=== PATIENT | female | born 1955 | race Hispanic/Latino ===

== ENCOUNTER 2022-03-11 21:25 | Emergency (ER) | payer SELFPAY ==
[2022-03-11 22:01] VITALS: BP 153/90
[2022-03-12] MEDS ORDERED: LIDOCAINE VISCOUS 2% 15 ML ORAL LIQD MM NR (01:00)
--- NOTE | 2022-03-12 03:44 | Emergency Department Report ---
ED General Adult HPI - General Chief complaint: Rectal Pain Stated complaint: RECTAL PROLAPSE Time Seen by Provider: 03/12/22 00:26 Source: EMS Mode of arrival: Stretcher Limitations: No Limitations - History of Present Illness Initial comments: RECTAL PROLASPSE, HAS HX WAS ADVISED TO GET SURGERY HAS NOT AT THIS TIME, PT DID STATE SHE HAS PUT SUGAR ON PROLAPSE WITH NO RELIEF. -: Gradual, month(s) Location: pelvis Severity scale (0 -10): 8 Associated Symptoms: denies: denies other symptoms, confusion, chest pain, cough, diaphoresis, fever/chills Treatments Prior to Arrival: none - Related Data Allergies Allergy/AdvReac Type Severity Reaction Status Date / Time No Known Allergies Allergy Verified 03/12/22 01:03 ED Review of Systems ROS: Stated complaint: RECTAL PROLAPSE Other details as noted in HPI Constitutional: denies: chills, fever Eyes: denies: eye pain, eye discharge, vision change ENT: denies: ear pain, throat pain Respiratory: denies: cough, shortness of breath, wheezing Cardiovascular: denies: chest pain, palpitations Endocrine: no symptoms reported Gastrointestinal: denies: abdominal pain, nausea, diarrhea Genitourinary: denies: urgency, dysuria, discharge Musculoskeletal: denies: back pain, joint swelling, arthralgia Skin: denies: rash, lesions Neurological: denies: headache, weakness, paresthesias Psychiatric: denies: anxiety, depression Hematological/Lymphatic: denies: easy bleeding, easy bruising ED Past Medical Hx - Past Medical History Previous Medical History?: Yes Hx Hypertension: No Hx CVA: No Additional medical history: RECTAL PROLAPSE - Social History Smoking Status: Never Smoker Substance Use Type: None ED Physical Exam - General Limitations: No Limitations General appearance: alert, in no apparent distress - Head Head exam: Present: atraumatic, normocephalic - Eye Eye exam: Present: normal appearance - ENT ENT exam: Present: mucous membranes moist - Neck Neck exam: Present: normal inspection - Respiratory Respiratory exam: Present: normal lung sounds bilaterally. Absent: respiratory distress - Cardiovascular Cardiovascular Exam: Present: regular rate, normal rhythm. Absent: systolic murmur, diastolic murmur, rubs, gallop - GI/Abdominal GI/Abdominal exam: Present: soft, normal bowel sounds - Rectal Rectal exam: Present: mass, other (full thickness rectal prolapse) - Extremities Exam Extremities exam: Present: normal inspection - Back Exam Back exam: Present: normal inspection - Neurological Exam Neurological exam: Present: alert, oriented X3 - Psychiatric Psychiatric exam: Present: normal affect, normal mood - Skin Skin exam: Present: warm, dry, intact, normal color. Absent: rash ED Course Vital Signs 03/11/22 03/11/22 21:28 22:00 Temperature 97.9 F 97.8 F Pulse Rate 82 77 Respiratory 18 18 Rate Blood Pressure 166/78 Blood Pressure 153/90 [Right] O2 Sat by Pulse 97 98 Oximetry ED Medical Decision Making - Medical Decision Making reduction using vicous lidocaine and manural reduction Critical care attestation.: If time is entered above; I have spent that time in minutes in the direct care of this critically ill patient, excluding procedure time. ED Disposition Clinical Impression: Rectal prolapse Disposition: 01 HOME / SELF CARE / HOMELESS Is pt being admited?: No Does the pt Need Aspirin: No Condition: Stable Instructions: Rectal Prolapse, Adult Referrals: ANA CASTILLO MD [Staff Physician] - 3-5 Days
== END 2022-03-12 04:12 | disposition home or self-care (01) ==
LOC: ED 21:25
DX: K62.3 Rectal prolapse (principal)
CPT/HCPCS: 99283

== ENCOUNTER 2022-04-13 12:07 | Inpatient (IN) | payer SELFPAY ==
[2022-04-14] MEDS ORDERED: cefTRIAXone/NS 2 GM/100 ML 2 GM/100 ML BAG IV STA (02:03)
[2022-04-14] MEDS ORDERED: VANCOMYCIN/NS 1 GM/250 ML 1 GM/250 ML BAG IV STA (02:03)
[2022-04-14 02:23] LABS: Hematocrit 32.6 % (30.3-42.9); Hemoglobin 10.2 gm/dl (10.1-14.3); Mean Corpuscular HGB Conc 31 % (30-34); Mean Corpuscular Volume 81 fl (79-97); Platelet Count 480 K/mm3 (140-440); Red Blood Count 4.02 M/mm3 (3.65-5.03); Red Cell Distribution Width 19.1 % (13.2-15.2)
[2022-04-14 02:38] LABS: Alanine Aminotransferase 13 units/L (7-56); BUN/Creatinine Ratio 18; Blood Urea Nitrogen 11 mg/dL (7-17); Hemolysis Index 14
[2022-04-14] MEDS ORDERED: MORPHINE 4 MG/1 ML INJ IV STA (05:12)
--- NOTE | 2022-04-14 05:12 | Cat Scan Report ---
CT CHEST WITH CONTRAST INDICATION / CLINICAL INFORMATION: large wound to mid left back. TECHNIQUE: Axial CT images were obtained through the chest after 100 cc Omnipaque [address] l [address] scans at this location are performed using CT dose reduction for ALARA by means of automated exp osure control. COMPARISON: None available. FINDINGS: CHEST LOWER NECK: Soft tissues and musculature of the lower neck demonstrate no significant abnormality. Th e thyroid demonstrates no significant abnormality. THORACIC AORTA: Mild atherosclerotic calcification without acute abnormality. PULMONARY ARTERY:No significant abnormality. HEART: No significant abnormality. CORONARY ARTERY CALCIFICATION: Present -- Severe. MEDIASTINUM / SHANNON: No significant abnormality. ESOPHAGUS: No significant abnormality. LYMPH NODES: Enlarged left axillary lymph nodes are present. Borderline to minimally enlarged right a xillary lymph nodes are present. Partially calcified subcarinal left hilar lymph nodes are demonstrat ed. LUNGS: Calcified granuloma left lower lobe. Lungs otherwise clear. PLEURA: No pleural effusion. No pneumothorax. THORACIC SOFT TISSUES: A focal region of soft tissue thickening overlies the lower left back with mod erate stranding and dermal thickening. The appearance suggests inflammatory or infectious process. No drainable fluid collections are demonstrated. OSSEOUS STRUCTURES: No significant abnormality of included osseous structures. UPPER ABDOMEN: No significant abnormality. ADDITIONAL CHEST FINDINGS: None. IMPRESSION: 1. Focal region of suggested cellulitis left lower back. No drainable fluid collections. 2. Bilateral axillary adenopathy possibly reactive. Signer Name: Eliazar Saleh II, MD Signed: 04/14/2022 5:07 AM Workstation Name: [id number]
[2022-04-14] MEDS ORDERED: MORPHINE 2 MG/1 ML INJ IV ONE (06:00)
--- NOTE | 2022-04-14 06:08 | Emergency Department Report ---
- General Chief complaint: Skin Rash Stated complaint: SPIDER BITE Time Seen by Provider: 04/14/22 01:53 Source: EMS Mode of arrival: Ambulatory Limitations: No Limitations - History of Present Illness MD complaint: abscess/boil, discoloration -: Gradual, days(s) (3) Quality: aching, dull Consistency: constant Improves with: none Worsens with: none Context: none Associated symptoms: denies other symptoms Treatments Prior to Arrival: none - Related Data Allergies Allergy/AdvReac Type Severity Reaction Status Date / Time No Known Allergies Allergy Verified 03/12/22 01:03 Abscess Boil HPI - HPI Chief Complaint: Skin Rash Stated Complaint: SPIDER BITE Time Seen by Provider: 04/14/22 01:53 Allergies/Adverse Reactions: Allergies Allergy/AdvReac Type Severity Reaction Status Date / Time No Known Allergies Allergy Verified 03/12/22 01:03 ED Review of Systems ROS: Stated complaint: SPIDER BITE Other details as noted in HPI Comment: All other systems reviewed and negative ED Past Medical Hx - Past Medical History Previous Medical History?: Yes Hx Hypertension: Yes Hx CVA: No Additional medical history: RECTAL PROLAPSE - Surgical History Past Surgical History?: No - Social History Smoking Status: Current Every Day Smoker ED Physical Exam - General Limitations: No Limitations General appearance: alert, in no apparent distress - Head Head exam: Present: atraumatic, normocephalic - Eye Eye exam: Present: normal appearance, PERRL, EOMI Pupils: Present: normal accommodation - ENT ENT exam: Present: mucous membranes moist - Neck Neck exam: Present: normal inspection - Respiratory Respiratory exam: Present: normal lung sounds bilaterally. Absent: respiratory distress - Cardiovascular Cardiovascular Exam: Present: regular rate, normal rhythm. Absent: systolic murmur, diastolic murmur, rubs, gallop - GI/Abdominal GI/Abdominal exam: Present: soft, normal bowel sounds - Extremities Exam Extremities exam: Present: normal inspection - Back Exam Back exam: Present: normal inspection, tenderness - Expanded Back Exam Expanded 1 - Significant cellulitis some weeping and some ducted tissue centralization. Cellulitis is a 20 cm - Neurological Exam Neurological exam: Present: alert, oriented X3, CN II-XII intact - Psychiatric Psychiatric exam: Present: normal affect, normal mood - Skin Skin exam: Present: warm, dry, intact, normal color. Absent: rash ED Course Vital Signs 04/13/22 04/14/22 04/14/22 12:15 05:07 05:10 Temperature 98.6 F 98.9 F Pulse Rate 102 H 96 H Respiratory 18 18 Rate Blood Pressure 170/84 Blood Pressure 145/80 [Left] O2 Sat by Pulse 100 100 98 Oximetry - Consultations Consultation #1: 04/14/22 06:18 Case discussed with hospitalist Dr. Jhaveri who is aware of the findings CT scan abdomen the lab findings chief complaint is for admission ED Medical Decision Making - Lab Data Result diagrams: 04/14/22 02:13 04/14/22 02:13 Lab Results 04/14/22 04/14/22 04/14/22 Range/Units 02:13 02:13 02:13 WBC 16.0 H (4.5-11.0) K/mm3 RBC 4.02 (3.65-5.03) M/mm3 Hgb 10.2 (10.1-14.3) gm/dl Hct 32.6 (30.3-42.9) % MCV 81 (79-97) fl MCH 25 L (28-32) pg MCHC 31 (30-34) % RDW 19.1 H (13.2-15.2) % Plt Count 480 H (140-440) K/mm3 Sodium 135 L (137-145) mmol/L Potassium 3.2 L (3.6-5.0) mmol/L Chloride 97.0 L (98-107) mmol/L Carbon Dioxide 25 (22-30) mmol/L Anion Gap 16 mmol/L BUN 11 (7-17) mg/dL Creatinine 0.6 (0.6-1.2) mg/dL Estimated GFR > 60 ml/min BUN/Creatinine Ratio 18 % Glucose 128 H (65-100) mg/dL Lactic Acid 1.00 (0.7-2.0) mmol/L Calcium 9.0 (8.4-10.2) mg/dL Total Bilirubin 0.20 (0.1-1.2) mg/dL AST 17 (5-40) units/L ALT 13 (7-56) units/L Alkaline Phosphatase 93 (35-129) units/L Total Protein 6.6 (6.3-8.2) g/dL Albumin 3.0 L (3.9-5) g/dL Albumin/Globulin Ratio 0.8 % - Radiology Data Radiology results: report reviewed [facility] [address] [id number] Cat Scan Report Signed Patient: DAIANA ANN MR#: [id number] : 1955 Acct:[id number] Age/Sex: 66 / F ADM Date: 04/13/22 Loc: ED Attending Dr: Ordering Physician: CARLYLE MC Date of Service: 04/14/22 Procedure(s): CT chest w con Accession Number(s): [id number] cc: CARLYLE MC CT CHEST WITH CONTRAST INDICATION / CLINICAL INFORMATION: large wound to mid left back. TECHNIQUE: Axial CT images were obtained through the chest after 100 cc Omnipaque [address] scans at this location are performed using CT dose reduction for ALARA by means of automated exposure control. COMPARISON: None available. FINDINGS: CHEST LOWER NECK: Soft tissues and musculature of the lower neck demonstrate no significant abnormality. The thyroid demonstrates no significant abnormality. THORACIC AORTA: Mild atherosclerotic calcification without acute abnormality. PULMONARY ARTERY:No significant abnormality. HEART: No significant abnormality. CORONARY ARTERY CALCIFICATION: Present -- Severe. MEDIASTINUM / SHANNON: No significant abnormality. ESOPHAGUS: No significant abnormality. LYMPH NODES: Enlarged left axillary lymph nodes are present. Borderline to minimally enlarged right axillary lymph nodes are present. Partially calcified subcarinal left hilar lymph nodes are demonstrated. LUNGS: Calcified granuloma left lower lobe. Lungs otherwise clear. PLEURA: No pleural effusion. No pneumothorax. THORACIC SOFT TISSUES: A focal region of soft tissue thickening overlies the lower left back with moderate stranding and dermal thickening. The appearance suggests inflammatory or infectious process. No drainable fluid collections are demonstrated. OSSEOUS STRUCTURES: No significant abnormality of included osseous structures. UPPER ABDOMEN: No significant abnormality. ADDITIONAL CHEST FINDINGS: None. IMPRESSION: 1. Focal region of suggested cellulitis left lower back. No drainable fluid collections. 2. Bilateral axillary adenopathy possibly reactive. Signer Name: Stacy Alexander II, MD Signed: 04/14/2022 5:07 AM Workstation Name: [id number] Transcribed By: IKE Dictated By: STACY ALEXANDER II, MD Electronically Authenticated By: STACY ALEXANDER II, MD Signed Date/Time: 04/14/22 0507 DD/ 0456 TD/TT: Critical care attestation.: If time is entered above; I have spent that time in minutes in the direct care of this critically ill patient, excluding procedure time. ED Disposition Clinical Impression: Cellulitis of back, Wound infection Disposition: 09 ADMITTED INPATIENT Is pt being admited?: Yes Does the pt Need Aspirin: No Condition: Stable Instructions: Cellulitis, Adult Referrals: PRIMARY CARE, [Primary Care Provider] - 3-5 Days
[2022-04-14] MEDS ORDERED: ONDANSETRON 4 MG/2 ML INJ IV PRN (07:28)
[2022-04-14] MEDS ORDERED: ACETAMINOPHEN 325 MG TAB PO PRN (08:00)
[2022-04-14] MEDS ORDERED: cephALEXin 500 MG CAP PO SCH (10:00)
[2022-04-14] MEDS ORDERED: SULFAMETHOXAZOLE/TRIMETHOPRIM 800/160MG DS TAB PO SCH (10:00)
[2022-04-14] MEDS ORDERED: POTASSIUM CHLORIDE ER 20 MEQ TAB PO SCH (10:00)
[2022-04-14] MEDS ORDERED: VANCOMYCIN/NS 1 GM/250 ML 1 GM/250 ML BAG IV SCH (14:00)
[2022-04-14] MEDS ORDERED: VANCOMYCIN PHARMACY TO DOSE IV SCH (14:00)
[2022-04-14] MEDS: cefTRIAXone/NS 1 GM/50 ML 1 GM/50 ML BAG IV SCH (14:41)
[2022-04-14] MEDS ORDERED: VANCOMYCIN/NS 1 GM/250 ML 1 GM/250 ML BAG IV ONE (15:00)
--- NOTE | 2022-04-14 16:21 | Consultation ---
History of Present Illness Consult date: 04/14/22 Reason for consult: wound care Chief complaint: back wound - History of present illness History of present illness: 66 yo F with who presents to ER with c/o 3 days or worsening back pain secondary to a wound. Patient states she was working in her garden and felt like she was bit by something. This started off as a small bite and got much larger/swollen over the course of 3 days. She tried warm compresses but this did not help. Eventually the area drained dark colored pus and closed back up. She presented to the ER for further evaluation and treatment. She denies f/c, cp, sob, n/v, c/d. She had a bite to her finger several years ago which resulted in something similar. She states it was drained at [place] and she was in the hospital for a few days for wound care/abx. Past History Past Medical History: No medical history Past Surgical History: Other (tubal ligation, incision and drainage of left finger abscess) Social history: smoking (marijuana ), alcohol abuse (social). denies: prescription drug abuse Family history: no significant family history Medications and Allergies Allergies Allergy/AdvReac Type Severity Reaction Status Date / Time No Known Allergies Allergy Verified 03/12/22 01:03 Active Meds: Active Medications Acetaminophen (Acetaminophen 325 Mg Tab) 650 mg PO Q4H PRN PRN Reason: Pain MILD(1-3)/Fever >100.5/ESPOSITO Last Admin: 04/14/22 08:55 Dose: 650 mg Ceftriaxone Sodium (Rocephin/Ns 1 Gm/50 Ml) 1 gm in 50 mls @ 100 mls/hr IV Q24H KARY; Protocol Last Admin: 04/14/22 14:41 Dose: 100 mls/hr Vancomycin HCl (Vancomycin/Ns 1 Gm/250 Ml) 1 gm in 250 mls @ 167.007 mls/hr IV ONCE ONE Stop: 04/14/22 16:29 Vancomycin HCl 750 mg/ Sodium (Chloride) 265 mls @ 166.667 mls/hr IV Q12H KARY Morphine Sulfate (Morphine 4 Mg/1 Ml Inj) 2 mg IV Q4H PRN PRN Reason: Pain , Severe (7-10) Ondansetron HCl (Ondansetron 4 Mg/2 Ml Inj) 4 mg IV Q8H PRN PRN Reason: Nausea And Vomiting Last Admin: 04/14/22 08:56 Dose: 4 mg Oxycodone/Acetaminophen (Oxycodone /Acetaminophen 5-325mg Tab) 1 tab PO Q6H PRN PRN Reason: Pain, Moderate (4-6) Sodium Chloride (Sodium Chloride 0.9% 10 Ml Flush Syringe) 10 ml IV BID KARY Sodium Chloride (Sodium Chloride 0.9% 10 Ml Flush Syringe) 10 ml IV PRN PRN PRN Reason: LINE FLUSH Review of Systems All systems: negative (10 point review of systems performed and negative except for that listed in HPI) Exam Vital Signs Temp Pulse Resp BP Pulse Ox 98.6 F 102 H 18 170/84 100 04/13/22 12:15 04/13/22 12:15 04/13/22 12:15 04/13/22 12:15 04/13/22 12:15 Narrative exam: Gen.: Awake, alert, oriented x3. No apparent distress ENT: Trachea midline. No lymphadenopathy. No scleral icterus or conjunctival pallor CV: S1, S2 present Respiratory: No audible wheezes Extremities: No clubbing, cyanosis, edema Back: Large 10 cm area of cellulitis, severe induration of left mid back with central area of necrotic skin measuring 3cm. No drainage. There are multiple superficial tiny pustules. Moderate TTP in area of cellulitis. Minimal sensation over area of necrosis. No active drainage Results - Labs 04/14/22 02:13 04/14/22 02:13 Abnormal lab results 04/14/22 04/14/22 Range/Units 02:13 02:13 WBC 16.0 H (4.5-11.0) K/mm3 MCH 25 L (28-32) pg RDW 19.1 H (13.2-15.2) % Plt Count 480 H (140-440) K/mm3 Sodium 135 L (137-145) mmol/L Potassium 3.2 L (3.6-5.0) mmol/L Chloride 97.0 L (98-107) mmol/L Glucose 128 H (65-100) mg/dL Albumin 3.0 L (3.9-5) g/dL Diabetes panel 04/14/22 Range/Units 02:13 Sodium 135 L (137-145) mmol/L Potassium 3.2 L (3.6-5.0) mmol/L Chloride 97.0 L (98-107) mmol/L Carbon Dioxide 25 (22-30) mmol/L BUN 11 (7-17) mg/dL Creatinine 0.6 (0.6-1.2) mg/dL Glucose 128 H (65-100) mg/dL Calcium 9.0 (8.4-10.2) mg/dL AST 17 (5-40) units/L ALT 13 (7-56) units/L Alkaline Phosphatase 93 (35-129) units/L Total Protein 6.6 (6.3-8.2) g/dL Albumin 3.0 L (3.9-5) g/dL Calcium panel 04/14/22 Range/Units 02:13 Calcium 9.0 (8.4-10.2) mg/dL Albumin 3.0 L (3.9-5) g/dL Pituitary panel 04/14/22 Range/Units 02:13 Sodium 135 L (137-145) mmol/L Potassium 3.2 L (3.6-5.0) mmol/L Chloride 97.0 L (98-107) mmol/L Carbon Dioxide 25 (22-30) mmol/L BUN 11 (7-17) mg/dL Creatinine 0.6 (0.6-1.2) mg/dL Glucose 128 H (65-100) mg/dL Calcium 9.0 (8.4-10.2) mg/dL Adrenal panel 04/14/22 Range/Units 02:13 Sodium 135 L (137-145) mmol/L Potassium 3.2 L (3.6-5.0) mmol/L Chloride 97.0 L (98-107) mmol/L Carbon Dioxide 25 (22-30) mmol/L BUN 11 (7-17) mg/dL Creatinine 0.6 (0.6-1.2) mg/dL Glucose 128 H (65-100) mg/dL Calcium 9.0 (8.4-10.2) mg/dL Total Bilirubin 0.20 (0.1-1.2) mg/dL AST 17 (5-40) units/L ALT 13 (7-56) units/L Alkaline Phosphatase 93 (35-129) units/L Total Protein 6.6 (6.3-8.2) g/dL Albumin 3.0 L (3.9-5) g/dL - Imaging CT scan - chest: report reviewed, image reviewed Assessment and Plan 66 yo F with 1. Necrotic back wound with severe cellulitis likely secondary to insect bite Plan: 1. IV abx 2. prn pain control 3. warm compresses to area 4. recommend debridement. Will check OR schedule for tomorrow. 5. NPO p MN karely Discussed with Dr. Jenkins Plan discussed with patient and questions answered. Thank you for this consultation. Please call with any questions or concerns. Evaluation and treatment of this patient was during the time of the national and state emergency arising from COVID19 coronavirus pandemic. Treatment and procedures performed meet the current and available best practice and guidelines for patient during the COVID pandemic.
--- NOTE | 2022-04-14 18:52 | History and Physical Report ---
History of Present Illness Date of examination: 04/14/22 Date of admission: 04/14/22 07:29 Chief complaint: Back wound History of present illness: 66 yo F with who presents to ER with c/o 3 days or worsening back pain secondary to a wound. Patient states she was working in her garden and felt like she was bit by something. This started off as a small bite and got much larger/swollen over the course of 3 days. She tried warm compresses but this did not help. Even tually the area drained dark colored pus and closed back up. She presented to the ER for further evaluation and treatment. She denies f/c, cp, sob, n/v, c/d. She had a bite to her finger several years ago which resulted in something similar. She states it was drained at [place] and she was in the hospital for a few days for wound care/abx. Past History Past Medical History: No medical history Past Surgical History: Other (tubal ligation, incision and drainage of left finger abscess) Social history: , Lives alone, smoking (marijuana ), full code. denies: prescription drug abuse Family history: no significant family history Medications and Allergies Allergies Allergy/AdvReac Type Severity Reaction Status Date / Time No Known Allergies Allergy Verified 03/12/22 01:03 Active Meds: Active Medications Acetaminophen (Acetaminophen 325 Mg Tab) 650 mg PO Q4H PRN PRN Reason: Pain MILD(1-3)/Fever >100.5/ESPOSITO Last Admin: 04/14/22 08:55 Dose: 650 mg Ceftriaxone Sodium (Rocephin/Ns 1 Gm/50 Ml) 1 gm in 50 mls @ 100 mls/hr IV Q24H KARY; Protocol Last Admin: 04/14/22 14:41 Dose: 100 mls/hr Vancomycin HCl 750 mg/ Sodium (Chloride) 265 mls @ 166.667 mls/hr IV Q12H KARY Sodium Chloride (Nacl 0.45% 1000 Ml) 1,000 mls @ 75 mls/hr IV DIRECT KARY Morphine Sulfate (Morphine 4 Mg/1 Ml Inj) 2 mg IV Q4H PRN PRN Reason: Pain , Severe (7-10) Ondansetron HCl (Ondansetron 4 Mg/2 Ml Inj) 4 mg IV Q8H PRN PRN Reason: Nausea And Vomiting Last Admin: 04/14/22 08:56 Dose: 4 mg Oxycodone/Acetaminophen (Oxycodone /Acetaminophen 5-325mg Tab) 1 tab PO Q6H PRN PRN Reason: Pain, Moderate (4-6) Sodium Chloride (Sodium Chloride 0.9% 10 Ml Flush Syringe) 10 ml IV BID KARY Sodium Chloride (Sodium Chloride 0.9% 10 Ml Flush Syringe) 10 ml IV PRN PRN PRN Reason: LINE FLUSH Review of Systems All systems: negative Integumentary: wounds Exam - Constitutional Vitals: Temp Pulse Resp BP Pulse Ox 98.3 F 79 18 114/60 100 04/14/22 14:30 04/14/22 14:30 04/14/22 14:30 04/14/22 14:30 04/14/22 14:30 General appearance: Present: no acute distress, well-nourished - EENT Eyes: Present: PERRL, EOM intact ENT: hearing intact, clear oral mucosa, poor dentition, edentulous - Neck Neck: Present: supple, normal ROM - Respiratory Respiratory effort: normal Respiratory: bilateral: CTA - Extremities Extremities: no ischemia, pulses intact, pulses symmetrical, No edema, normal temperature, normal color Peripheral Pulses: within normal limits - Abdominal General gastrointestinal: Present: soft, non-tender, non-distended, normal bowel sounds Female genitourinary: Present: deferred - Rectal Rectal Exam: deferred - Integumentary Integumentary: Present: warm, dry, erythema (Erythematous, severe cellulitis of the upper left back with visible necrosis) - Musculoskeletal Musculoskeletal: strength equal bilaterally - Psychiatric Psychiatric: appropriate mood/affect, intact judgment & insight, memory intact, cooperative - Neurologic Neurologic: CNII-XII intact, moves all extremities - Allied Health Allied health notes reviewed: nursing Results - Labs CBC & Chem 7: 04/14/22 02:13 04/14/22 02:13 Labs: Laboratory Last Values WBC 16.0 K/mm3 (4.5-11.0) H 04/14/22 02:13 RBC 4.02 M/mm3 (3.65-5.03) 04/14/22 02:13 Hgb 10.2 gm/dl (10.1-14.3) 04/14/22 02:13 Hct 32.6 % (30.3-42.9) 04/14/22 02:13 MCV 81 fl (79-97) 04/14/22 02:13 MCH 25 pg (28-32) L 04/14/22 02:13 MCHC 31 % (30-34) 04/14/22 02:13 RDW 19.1 % (13.2-15.2) H 04/14/22 02:13 Plt Count 480 K/mm3 (140-440) H 04/14/22 02:13 Sodium 135 mmol/L (137-145) L 04/14/22 02:13 Potassium 3.2 mmol/L (3.6-5.0) L 04/14/22 02:13 Chloride 97.0 mmol/L (98-107) L 04/14/22 02:13 Carbon Dioxide 25 mmol/L (22-30) 04/14/22 02:13 Anion Gap 16 mmol/L 04/14/22 02:13 BUN 11 mg/dL (7-17) 04/14/22 02:13 Creatinine 0.6 mg/dL (0.6-1.2) 04/14/22 02:13 Estimated GFR > 60 ml/min 04/14/22 02:13 BUN/Creatinine Ratio 18 % 04/14/22 02:13 Glucose 128 mg/dL (65-100) H 04/14/22 02:13 Lactic Acid 1.00 mmol/L (0.7-2.0) 04/14/22 02:13 Calcium 9.0 mg/dL (8.4-10.2) 04/14/22 02:13 Total Bilirubin 0.20 mg/dL (0.1-1.2) 04/14/22 02:13 AST 17 units/L (5-40) 04/14/22 02:13 ALT 13 units/L (7-56) 04/14/22 02:13 Alkaline Phosphatase 93 units/L (35-129) 04/14/22 02:13 Total Protein 6.6 g/dL (6.3-8.2) 04/14/22 02:13 Albumin 3.0 g/dL (3.9-5) L 04/14/22 02:13 Albumin/Globulin Ratio 0.8 % 04/14/22 02:13 Assessment and Plan Assessment and plan: #Severe cellulitis of the left upper back WBC 10.2, unremarkable lactic acid CT chest revealing large cellulitis without drainable pockets Continue vancomycin and Rocephin for antibiotic management. Continue as needed analgesics. General surgery consulted; appreciate recs Planning for possible debridement in OR tomorrow (if schedule allows). N.p.o. at midnight. Continue to monitor. #Hypokalemia Potassium 3.2 Repleted. Continue to monitor. #Mild protein caloric malnutrition Albumin 3.0 Continue dietary supplementation. #Advanced care planning -Disease education conducted, care plan discussed, diagnoses discussed, prognosis discussed, and patient acknowledges understanding with care plan -Time: +30 min Advance Directives: No VTE prophylaxis?: Chemical Plan of care discussed with patient/family: Yes
[2022-04-14] MEDS: HEPARIN 5,000 UNIT/1 ML VIAL SUB-Q SCH (22:00)
[2022-04-15] MEDS: VANCOMYCIN 750 MG in SODIUM CHLORIDE 0.9% 250ML 250 ML IV SCH ×3 (03:45→17:35)
[2022-04-15] MEDS: SODIUM CHLORIDE 0.45% 1000 ML 1,000 ML IV SCH ×2 (04:31→16:40)
[2022-04-15] MEDS: HEPARIN 5,000 UNIT/1 ML VIAL SUB-Q SCH ×3 (06:35→21:29)
[2022-04-15 09:56] LABS: Blood Urea Nitrogen 7 mg/dL (7-17); Calcium 8.5 mg/dL (8.4-10.2); Hemolysis Index 0
[2022-04-15 09:58] LABS: BUN/Creatinine Ratio 12
[2022-04-15 09:59] LABS: Basophils # (Auto) 0.1 K/mm3 (0.0-0.1); Basophils % (Auto) 0.8 % (0.0-1.8); Eosinophils # (Auto) 0.5 K/mm3 (0.0-0.4); Eosinophils % (Auto) 3.4 % (0.0-4.3); Hemoglobin 10.1 gm/dl (10.1-14.3); Lymphocytes # (Auto) 1.1 K/mm3 (1.2-5.4); Lymphocytes % (Auto) 8.4 % (13.4-35.0); Mean Corpuscular HGB Conc 32 % (30-34); Mean Corpuscular Volume 81 fl (79-97); Monocytes # (Auto) 0.9 K/mm3 (0.0-0.8); Monocytes % (Auto) 6.4 % (0.0-7.3); Platelet Count 541 K/mm3 (140-440); Red Blood Count 3.94 M/mm3 (3.65-5.03); Red Cell Distribution Width 19.5 % (13.2-15.2)
[2022-04-15 10:10] LABS: INR 0.94 (0.87-1.13)
[2022-04-15] MEDS ORDERED: KETAMINE/STERILE WATER 50 MG/ML SYRINGE ONE (13:44)
[2022-04-15] MEDS ORDERED: propofoL 200 MG/20 ML VIAL IV ONE ×4 (13:44)
[2022-04-15] MEDS ORDERED: LACTATED RINGERS 1,000 ML ONE (14:06)
--- NOTE | 2022-04-15 14:10 | Anesthesia Day of Surgery ---
Anesthesia Day of Surgery - Day of Surgery Patient Examined: Yes Patient H&P Reviewed: Yes Patient is NPO: Yes
--- NOTE | 2022-04-15 14:12 | Anesthesia Consultation ---
Anesthesia Consult and Med Hx Date of service: 04/15/22 - Airway Anesthetic Teeth Evaluation: Poor, Chipped, Partials Mental/Hyoid Distance: Adequate Mallampati Class: Class II Intubation Access Assessment: Good - Pre-Operative Health Status ASA Pre-Surgery Classification: ASA2 Proposed Anesthetic Plan: MAC - Pulmonary Hx Smoking: Yes Hx Sleep Apnea: No - Gastrointestinal Hx Gastroesophageal Reflux Disease: No - Other Systems Hx Substance Use: Yes (MJ) Hx Obesity: No
--- NOTE | 2022-04-15 14:40 | Procedure Note ---
Date of procedure: 04/15/22 Pre-op diagnosis: back abscess Post-op diagnosis: same Procedure: excisional debridement of back wound with drainage of abscess Findings: Findings: 4 cm area of necrotic skin and subcutaneous tissue with underlying abscess, multiple tracts to skin. Procedure: Time out performed. Patient in lateral decubitus position. Skin prepped and draped in sterile fashion. Anesthesia given. Local anesthetic infiltrated into skin. The central area of necrosis was excised using an 11 blade and forcep. The wound was probed with a gloved finger and all loculations broken up. The abscess cavity extended through subq tissue. Muscle visible. Additional necrotic subq tissue debrided using foreceps and blade. A copious amount of pus was evacuated and cultures obtained. The wound was irrigated and hemostasis achieved with pressure. The wound was packed with 2 pieces of saline moistened gauze. This was covered with dry gauze and foam dressing. Wound measured 4.5 x 4 x 1.5 cm. Patient tolerated the procedure well. All sharps were disposed of appropriately. Anesthesia: MAC, local Surgeon: OUMOU UMANZOR Estimated blood loss: minimal Pathology: list (wound cultures) Specimen disposition: to lab Condition: stable Disposition: PACU
--- NOTE | 2022-04-15 14:47 | Post Anesthesia Evaluation ---
- Post Anesthesia Evaluation Patient Participated: Yes Airway Patent: Yes Stable Respiratory Function: Yes Nausea/Vomiting: No Temp > 96.8F: Yes Pain Manageable: Yes Adequeate Hydration: Yes Anesthesia Complications: No Block Receding Appropriately: Not Applicable Patient on Ventilator: No
--- NOTE | 2022-04-15 14:51 | Progress Note ---
Assessment and Plan Assessment and plan: #Severe cellulitis of the left upper back WBC 10.2, unremarkable lactic acid CT chest revealing large cellulitis without drainable pockets Continue vancomycin and Rocephin for antibiotic management. Continue as needed analgesics. General surgery consulted; appreciate recs Status post debridement in OR today with general surgery. Wound cultures pending. Infectious disease consulted for antibiotic management; pending recs #Hypokalemiaresolved Potassium 3.2 Repleted. Continue to monitor. #Mild protein caloric malnutrition Albumin 3.0 Continue dietary supplementation. #Advanced care planning -Disease education conducted, care plan discussed, diagnoses discussed, prognosis discussed, and patient acknowledges understanding with care plan -Time: +30 min #Discharge planning - Patient is pending wound culture results and final antibiotic regimen. - Case management has been made aware. Disposition Plan: Continue medical management Total Time Spent with Patient (Minutes): 45 minutes History Interval history: No acute events overnight. Hospitalist Physical - Constitutional Vitals: Temp Pulse Resp BP Pulse Ox 98.3 F 79 18 114/60 100 04/14/22 14:30 04/14/22 14:30 04/14/22 14:30 04/14/22 14:30 04/14/22 14:30 General appearance: Present: no acute distress, well-nourished - EENT Eyes: Present: PERRL, EOM intact ENT: hearing intact, clear oral mucosa, poor dentition, edentulous - Neck Neck: Present: supple, normal ROM - Respiratory Respiratory effort: normal Respiratory: bilateral: CTA - Cardiovascular Rhythm: regular Heart Sounds: Present: S1 & S2 - Extremities Extremities: no ischemia, pulses intact, pulses symmetrical, No edema, normal temperature, normal color Peripheral Pulses: within normal limits - Abdominal General gastrointestinal: soft, non-tender, non-distended, normal bowel sounds - Integumentary Integumentary: Present: warm, dry, erythema (Erythema surrounding cellulitis of left upper back; approximately 6 cm in diameter with necrotic tissue.) - Psychiatric Psychiatric: appropriate mood/affect, intact judgment & insight, memory intact, cooperative - Neurologic Neurologic: CNII-XII intact - Allied Health Allied health notes reviewed: nursing Results - Labs CBC & Chem 7: 04/15/22 09:11 04/15/22 09:11 Labs: Laboratory Last Values WBC 13.6 K/mm3 (4.5-11.0) H 04/15/22 09:11 RBC 3.94 M/mm3 (3.65-5.03) 04/15/22 09:11 Hgb 10.1 gm/dl (10.1-14.3) 04/15/22 09:11 Hct 32.0 % (30.3-42.9) 04/15/22 09:11 MCV 81 fl (79-97) 04/15/22 09:11 MCH 26 pg (28-32) L 04/15/22 09:11 MCHC 32 % (30-34) 04/15/22 09:11 RDW 19.5 % (13.2-15.2) H 04/15/22 09:11 Plt Count 541 K/mm3 (140-440) H 04/15/22 09:11 Lymph % (Auto) 8.4 % (13.4-35.0) L 04/15/22 09:11 [place] % (Auto) 6.4 % (0.0-7.3) 04/15/22 09:11 Eos % (Auto) 3.4 % (0.0-4.3) 04/15/22 09:11 Baso % (Auto) 0.8 % (0.0-1.8) 04/15/22 09:11 Lymph # (Auto) 1.1 K/mm3 (1.2-5.4) L 04/15/22 09:11 [place] # (Auto) 0.9 K/mm3 (0.0-0.8) H 04/15/22 09:11 Eos # (Auto) 0.5 K/mm3 (0.0-0.4) H 04/15/22 09:11 Baso # (Auto) 0.1 K/mm3 (0.0-0.1) 04/15/22 09:11 Seg Neutrophils % 81.0 % (40.0-70.0) H 04/15/22 09:11 Seg Neutrophils # 11.0 K/mm3 (1.8-7.7) H 04/15/22 09:11 PT 13.6 Sec. (12.2-14.9) 04/15/22 09:11 INR 0.94 (0.87-1.13) 04/15/22 09:11 Sodium 137 mmol/L (137-145) 04/15/22 09:11 Potassium 4.0 mmol/L (3.6-5.0) D 04/15/22 09:11 Chloride 101.9 mmol/L (98-107) 04/15/22 09:11 Carbon Dioxide 26 mmol/L (22-30) 04/15/22 09:11 Anion Gap 13 mmol/L 04/15/22 09:11 BUN 7 mg/dL (7-17) 04/15/22 09:11 Creatinine 0.6 mg/dL (0.6-1.2) 04/15/22 09:11 Estimated GFR > 60 ml/min 04/15/22 09:11 BUN/Creatinine Ratio 12 % 04/15/22 09:11 Glucose 95 mg/dL (65-100) 04/15/22 09:11 Lactic Acid 1.00 mmol/L (0.7-2.0) 04/14/22 02:13 Calcium 8.5 mg/dL (8.4-10.2) 04/15/22 09:11 Total Bilirubin 0.20 mg/dL (0.1-1.2) 04/14/22 02:13 AST 17 units/L (5-40) 04/14/22 02:13 ALT 13 units/L (7-56) 04/14/22 02:13 Alkaline Phosphatase 93 units/L (35-129) 04/14/22 02:13 Total Protein 6.6 g/dL (6.3-8.2) 04/14/22 02:13 Albumin 3.0 g/dL (3.9-5) L 04/14/22 02:13 Albumin/Globulin Ratio 0.8 % 04/14/22 02:13 Active Medications - Current Medications Current Medications: Generic Name Dose Route Start Last Admin Trade Name Freq PRN Reason Stop Dose Admin Acetaminophen 650 mg 04/14/22 08:00 04/14/22 08:55 Acetaminophen 325 Mg Tab PO 650 mg Q4H PRN Administration Pain MILD(1-3)/Fever >100.5/ESPOSITO Heparin Sodium (Porcine) 5,000 unit 04/14/22 22:00 04/15/22 06:35 Heparin 5,000 Unit/1 Ml Vial SUB-Q 5,000 unit Q8HR KARY Administration Ceftriaxone Sodium 1 gm in 50 mls @ 100 mls/hr 04/14/22 14:00 04/14/22 14:41 Rocephin/Ns 1 Gm/50 Ml IV 100 mls/hr Q24H AKRY Administration Protocol Vancomycin HCl 750 mg/ Sodium 265 mls @ 166.667 mls/hr 04/15/22 03:00 04/15/22 03:45 Chloride IV 166.667 mls/hr Q12H KARY Administration Sodium Chloride 1,000 mls @ 75 mls/hr 04/14/22 17:00 04/15/22 04:31 Nacl 0.45% 1000 Ml IV 75 mls/hr DIRECT KARY Administration Morphine Sulfate 2 mg 04/14/22 08:00 Morphine 4 Mg/1 Ml Inj IV Q4H PRN Pain , Severe (7-10) Ondansetron HCl 4 mg 04/14/22 07:28 04/14/22 08:56 Ondansetron 4 Mg/2 Ml Inj IV 4 mg Q8H PRN Administration Nausea And Vomiting Oxycodone/Acetaminophen 1 tab 04/14/22 07:28 Oxycodone /Acetaminophen 5-325mg Tab PO Q6H PRN Pain, Moderate (4-6) Sodium Chloride 10 ml 04/14/22 10:00 04/14/22 22:00 Sodium Chloride 0.9% 10 Ml Flush Syringe IV 10 ml BID KARY Administration Sodium Chloride 10 ml 04/14/22 08:00 Sodium Chloride 0.9% 10 Ml Flush Syringe IV PRN PRN LINE FLUSH
[2022-04-15] MEDS: cefTRIAXone/NS 1 GM/50 ML 1 GM/50 ML BAG IV SCH ×2 (16:22→16:41)
--- NOTE | 2022-04-15 16:41 | Consultation ---
History of Present Illness - Reason for Consult Consult date: 04/15/22 - History of Present Illness 66-year-old female past medical history unknown presented to hospital complaining of worsening back pain in the setting of a wound. This began approximately 3 days prior to admission and was worsening since onset. She notes believing she was bitten by something while working in her garden. After few days she noted drainage of dark off. Surgery performed excisional debridement with drainage of abscess. She was noted to have 4 cm necrotic skin. Afebrile since admission with a white count of 16. Normal renal function. No current cultures. On ceftriaxone and vancomycin. Imaging personally reviewed: Chest ET: Cellulitis of the left lower back. Review of Systems: Bold if positive, otherwise negative General: fevers, chills, rigors HEENT: visual disturbance, diplopia, eye pain Respiratory: cough, sputum, hemoptysis, shortness of breath Cardiovascular: chest pain, syncope Gastrointestinal: nausea, vomiting, diarrhea, abdominal pain Genitourinary: dysuria, hematuria, flank pain Musculoskeletal: neck pain, back pain, joint pain, edema Neurologic: headaches, seizures Hematologic: easy bruising or bleeding Endocrine: night sweats, acute weight loss Skin: rash, jaundice, redness Psychiatric: suicidal, homicidal ideation Past History Past Medical History: No medical history Past Surgical History: Other (tubal ligation, incision and drainage of left finger abscess) Social history: , Lives alone, smoking (marijuana ), full code. denies: prescription drug abuse Family history: no significant family history Medications and Allergies Allergies Allergy/AdvReac Type Severity Reaction Status Date / Time No Known Allergies Allergy Verified 03/12/22 01:03 Active Meds: Active Medications Acetaminophen (Acetaminophen 325 Mg Tab) 650 mg PO Q4H PRN PRN Reason: Pain MILD(1-3)/Fever >100.5/ESPOSITO Last Admin: 04/14/22 08:55 Dose: 650 mg Heparin Sodium (Porcine) (Heparin 5,000 Unit/1 Ml Vial) 5,000 unit SUB-Q Q8HR KARY Last Admin: 04/15/22 16:22 Dose: Not Given Ceftriaxone Sodium (Rocephin/Ns 1 Gm/50 Ml) 1 gm in 50 mls @ 100 mls/hr IV Q24H KARY; Protocol Last Admin: 04/15/22 16:22 Dose: Not Given Vancomycin HCl 750 mg/ Sodium (Chloride) 265 mls @ 166.667 mls/hr IV Q12H [facility] Last Admin: 04/15/22 16:22 Dose: Not Given Sodium Chloride (Nacl 0.45% 1000 Ml) 1,000 mls @ 75 mls/hr IV DIRECT [facility] Last Admin: 04/15/22 04:31 Dose: 75 mls/hr Morphine Sulfate (Morphine 4 Mg/1 Ml Inj) 2 mg IV Q4H PRN PRN Reason: Pain , Severe (7-10) Ondansetron HCl (Ondansetron 4 Mg/2 Ml Inj) 4 mg IV Q8H PRN PRN Reason: Nausea And Vomiting Last Admin: 04/14/22 08:56 Dose: 4 mg Oxycodone/Acetaminophen (Oxycodone /Acetaminophen 5-325mg Tab) 1 tab PO Q6H PRN PRN Reason: Pain, Moderate (4-6) Sodium Chloride (Sodium Chloride 0.9% 10 Ml Flush Syringe) 10 ml IV BID [facility] Last Admin: 04/15/22 16:21 Dose: Not Given Sodium Chloride (Sodium Chloride 0.9% 10 Ml Flush Syringe) 10 ml IV PRN PRN PRN Reason: LINE FLUSH Physical Examination - Physical Exam Narrative exam: Physical Exam: Constitutional: Alert, cooperative. No acute distress Head, Ears, Nose: Normocephalic, atraumatic. External ears, nose normal Eyes: Conjunctivae/corneas clear. No icterus. No ptosis. Neck: Supple, no meningeal signs Oral: dentition fair, no thrush Cardiovascular: S1, S2 normal. Respiratory: Good air entry, clear to auscultation bilaterally GI: Soft, non-tender; bowel sounds normal. No peritoneal signs. Musculoskeletal: Back wound dressed. Skin: No rash or abscess Hem/Lymphatic: No palpable cervical or supraclavicular nodes. No lymphangitis Psych: Mood ok. Affect normal Neurological: Awake, alert, oriented. No gross abnormality - Constitutional Vitals: Vital Signs Temp Pulse Resp BP Pulse Ox 97.3 F L 63 16 114/57 96 04/15/22 15:00 04/15/22 15:15 04/15/22 16:17 04/15/22 15:15 04/15/22 16:17 Temperature -Last 24 Hours Temperature 97.3 F Temperature 97.6 F Results - Labs CBC & Chem 7: 04/15/22 09:11 04/15/22 09:11 Labs: Abnormal lab results 04/15/22 Range/Units 09:11 WBC 13.6 H (4.5-11.0) K/mm3 MCH 26 L (28-32) pg RDW 19.5 H (13.2-15.2) % Plt Count 541 H (140-440) K/mm3 Lymph % (Auto) 8.4 L (13.4-35.0) % Lymph # (Auto) 1.1 L (1.2-5.4) K/mm3 [place] # (Auto) 0.9 H (0.0-0.8) K/mm3 Eos # (Auto) 0.5 H (0.0-0.4) K/mm3 Seg Neutrophils % 81.0 H (40.0-70.0) % Seg Neutrophils # 11.0 H (1.8-7.7) K/mm3 Assessment and Plan Cultures: pending A/P: 66-year-old female no known past medical history now with: #Acute sepsis: With cytosis and tachycardia. Secondary to back abscess and cellulitis #Famously back with abscess: Was taken today for I&D. Cultures are pending. ?Secondary to bug bite. Recs: -Agree with vancomycin and ceftriaxone for now. -Follow up surgical cultures for DC PO antibiotics. Thank you for the consult, we will continue to follow. MD Liza No[facility] ([facility]) O: [phone] F: [phone]
[2022-04-15] MEDS: oxyCODONE /ACETAMINOPHEN 5-325MG TAB PO PRN (17:36)
[2022-04-15] MEDS: MORPHINE 4 MG/1 ML INJ IV PRN (21:50)
[2022-04-16] MEDS: HEPARIN 5,000 UNIT/1 ML VIAL SUB-Q SCH ×3 (06:33→21:23)
[2022-04-16] MEDS: VANCOMYCIN 750 MG in SODIUM CHLORIDE 0.9% 250ML 250 ML IV SCH ×2 (06:33→15:58)
[2022-04-16] MEDS: oxyCODONE /ACETAMINOPHEN 5-325MG TAB PO PRN ×3 (06:34→21:23)
[2022-04-16 09:26] LABS: Hematocrit 31.3 % (30.3-42.9); Hemoglobin 9.8 gm/dl (10.1-14.3); Mean Corpuscular HGB Conc 31 % (30-34); Mean Corpuscular Volume 82 fl (79-97); Platelet Count 546 K/mm3 (140-440); Red Blood Count 3.82 M/mm3 (3.65-5.03); Red Cell Distribution Width 19.5 % (13.2-15.2)
[2022-04-16 09:29] LABS: BUN/Creatinine Ratio 12; Blood Urea Nitrogen 7 mg/dL (7-17); Calcium 8.5 mg/dL (8.4-10.2); Hemolysis Index 0
[2022-04-16 10:27] LABS: Basophils % (Manual) 0 % (0.0-1.8); Hypochromasia 1+; Total Cells Counted 100
[2022-04-16 10:28] LABS: Large Platelets Few; Platelet Estimate Consistent w Auto
[2022-04-16] MEDS: cefTRIAXone/NS 1 GM/50 ML 1 GM/50 ML BAG IV SCH (13:21)
[2022-04-16] MEDS: SODIUM CHLORIDE 0.45% 1000 ML 1,000 ML IV SCH (13:22)
--- NOTE | 2022-04-16 14:30 | Progress Note ---
Assessment and Plan Cultures: pending A/P: 66-year-old female no known past medical history now with: #Acute sepsis: With cytosis and tachycardia. Secondary to back abscess and cellulitis #Back cellulitis with abscess: Was taken for I&D. Cultures are pending. ?Secondary to bug bite. Recs: -Agree with vancomycin and ceftriaxone for now. -Follow up surgical cultures for DC PO antibiotics. -Unclear if cultures were processed. Can send with Augmentin 875/125mg q12h and Bactrim DS q12h for 7 days Thank you for the consult, we will continue to follow. Mee Jerez MD [facility] ([facility]) O: [phone] F: [phone] Subjective Date of service: 04/16/22 Interval history: Afebrile, white count is normal. Objective - Exam Narrative Exam: Physical Exam: Constitutional: Alert, cooperative. No acute distress Head, Ears, Nose: Normocephalic, atraumatic. External ears, nose normal Eyes: Conjunctivae/corneas clear. No icterus. No ptosis. Neck: Supple, no meningeal signs Oral: dentition fair, no thrush Cardiovascular: S1, S2 normal. Respiratory: Good air entry, clear to auscultation bilaterally GI: Soft, non-tender; bowel sounds normal. No peritoneal signs. Musculoskeletal: Back wound dressed. Skin: No rash or abscess Hem/Lymphatic: No palpable cervical or supraclavicular nodes. No lymphangitis Psych: Mood ok. Affect normal Neurological: Awake, alert, oriented. No gross abnormality - Constitutional Vitals: Vital Signs Temp Pulse Resp BP Pulse Ox 98.3 F 68 16 135/55 100 04/16/22 04:00 04/16/22 04:00 04/16/22 04:00 04/16/22 04:00 04/16/22 07:42 Temperature -Last 24 Hours Temperature 98.3 F Temperature 97.8 F Temperature 97.3 F Temperature 97.6 F - Labs CBC & Chem 7: 04/16/22 08:28 04/16/22 08:28 Labs: Abnormal lab results 04/16/22 Range/Units 08:28 Hgb 9.8 L (10.1-14.3) gm/dl MCH 26 L (28-32) pg RDW 19.5 H (13.2-15.2) % Plt Count 546 H (140-440) K/mm3 Seg Neuts % (Manual) 71.0 H (40.0-70.0) % Eosinophils % (Manual) 7.0 H (0.0-4.3) % Eosinophils # (Manual) 0.6 H (0.0-0.4) K/mm3
[2022-04-16] MEDS ORDERED: SODIUM HYPOCHLORITE, DAKIN'S 1/2 STRENGTH (0.25%) 473 ML TOPICAL SOLN TP PRN (14:39)
--- NOTE | 2022-04-16 15:48 | Progress Note ---
Assessment and Plan 66 yo F s/p debridement of back wound with drainage of abscess, POD 1 1. Necrotic back wound with severe cellulitis likely secondary to insect bite Plan: 1. IV abx, ID on board 2. prn pain control 3. warm compresses to area 4. await wound culture results 5. BID dressing changes with dakins - orders placed 6. [facility] Thank you. Please call with any questions or concerns. Evaluation and treatment of this patient was during the time of the national and state emergency arising from COVID19 coronavirus pandemic. Treatment and procedures performed meet the current and available best practice and guidelines for patient during the COVID pandemic. Subjective Date of service: 04/16/22 Narrative: Patient seen and examined. No acute complaints. Pain well controlled. Dressing change performed by RN today. Objective Vital Signs - 12hr 04/16/22 04/16/22 04:00 07:42 Temperature 98.3 F Pulse Rate 68 Respiratory 16 Rate Blood Pressure 135/55 [Left] O2 Sat by Pulse 96 100 Oximetry - General physical appearance Narrative Exam: Gen.: Awake, alert, oriented x3. No apparent distress ENT: Trachea midline. No lymphadenopathy. No scleral icterus or conjunctival pallor CV: S1, S2 present Respiratory: No audible wheezes Extremities: No clubbing, cyanosis, edema Back: Dressing in place with serous drainage. Packing in place, clean. 10 cm surrounding area of severe cellulitis and induration of the skin. No odor or drainage. New coversite dressing applied. - Labs 04/16/22 08:28 04/16/22 08:28 Diabetes panel 04/16/22 Range/Units 08:28 Sodium 139 (137-145) mmol/L Potassium 3.7 (3.6-5.0) mmol/L Chloride 105.2 (98-107) mmol/L Carbon Dioxide 24 (22-30) mmol/L BUN 7 (7-17) mg/dL Creatinine 0.6 (0.6-1.2) mg/dL Glucose 89 (65-100) mg/dL Calcium 8.5 (8.4-10.2) mg/dL Calcium panel 04/16/22 Range/Units 08:28 Calcium 8.5 (8.4-10.2) mg/dL Pituitary panel 04/16/22 Range/Units 08:28 Sodium 139 (137-145) mmol/L Potassium 3.7 (3.6-5.0) mmol/L Chloride 105.2 (98-107) mmol/L Carbon Dioxide 24 (22-30) mmol/L BUN 7 (7-17) mg/dL Creatinine 0.6 (0.6-1.2) mg/dL Glucose 89 (65-100) mg/dL Calcium 8.5 (8.4-10.2) mg/dL Adrenal panel 04/16/22 Range/Units 08:28 Sodium 139 (137-145) mmol/L Potassium 3.7 (3.6-5.0) mmol/L Chloride 105.2 (98-107) mmol/L Carbon Dioxide 24 (22-30) mmol/L BUN 7 (7-17) mg/dL Creatinine 0.6 (0.6-1.2) mg/dL Glucose 89 (65-100) mg/dL Calcium 8.5 (8.4-10.2) mg/dL
--- NOTE | 2022-04-16 16:56 | Progress Note ---
Assessment and Plan Assessment and plan: #Severe cellulitis of the left upper back WBC 10.2, unremarkable lactic acid CT chest revealing large cellulitis without drainable pockets Continue vancomycin and Rocephin for antibiotic management. Continue as needed analgesics. General surgery consulted; appreciate recs Status post debridement in OR with general surgery. Wound cultures pending. Infectious disease consulted for antibiotic management; appreciate recs. Possible discharge antibiotic regimen: augmentin 875/125mg q12hrs and Bactrim DS 1 tab q12hrs x7 days. #Hypokalemiaresolved Potassium 3.2 Repleted. Continue to monitor. #Mild protein caloric malnutrition Albumin 3.0 Continue dietary supplementation. #Advanced care planning -Disease education conducted, care plan discussed, diagnoses discussed, prognosis discussed, and patient acknowledges understanding with care plan -Time: +30 min #Discharge planning - Patient is pending wound culture results and final antibiotic regimen. - Case management has been made aware. Disposition Plan: Continue medical management Total Time Spent with Patient (Minutes): 45 min History Interval history: No acute events overnight. Hospitalist Physical - Constitutional Vitals: Temp Pulse Resp BP Pulse Ox 98.3 F 68 16 135/55 100 04/16/22 04:00 04/16/22 04:00 04/16/22 04:00 04/16/22 04:00 04/16/22 07:42 General appearance: Present: no acute distress, well-nourished - EENT Eyes: Present: PERRL, EOM intact ENT: hearing intact, clear oral mucosa, poor dentition, edentulous - Neck Neck: Present: supple, normal ROM - Respiratory Respiratory effort: normal Respiratory: bilateral: CTA - Cardiovascular Rhythm: regular Heart Sounds: Present: S1 & S2 - Extremities Extremities: no ischemia, pulses intact, pulses symmetrical, No edema, normal temperature, normal color Peripheral Pulses: within normal limits - Abdominal General gastrointestinal: soft, non-tender, non-distended, normal bowel sounds - Integumentary Integumentary: Present: warm, dry, erythema (Open cellulitis of L upper back with packing. ) - Psychiatric Psychiatric: appropriate mood/affect, intact judgment & insight, memory intact, cooperative - Neurologic Neurologic: CNII-XII intact, moves all extremities - Allied Health Allied health notes reviewed: nursing Results - Labs CBC & Chem 7: 04/16/22 08:28 04/16/22 08:28 Labs: Laboratory Last Values WBC 9.0 K/mm3 (4.5-11.0) 04/16/22 08:28 RBC 3.82 M/mm3 (3.65-5.03) 04/16/22 08:28 Hgb 9.8 gm/dl (10.1-14.3) L 04/16/22 08:28 Hct 31.3 % (30.3-42.9) 04/16/22 08:28 MCV 82 fl (79-97) 04/16/22 08:28 MCH 26 pg (28-32) L 04/16/22 08:28 MCHC 31 % (30-34) 04/16/22 08:28 RDW 19.5 % (13.2-15.2) H 04/16/22 08:28 Plt Count 546 K/mm3 (140-440) H 04/16/22 08:28 Lymph % (Auto) 8.4 % (13.4-35.0) L 04/15/22 09:11 Ward % (Auto) 6.4 % (0.0-7.3) 04/15/22 09:11 Eos % (Auto) 3.4 % (0.0-4.3) 04/15/22 09:11 Baso % (Auto) 0.8 % (0.0-1.8) 04/15/22 09:11 Lymph # (Auto) 1.1 K/mm3 (1.2-5.4) L 04/15/22 09:11 Ward # (Auto) 0.9 K/mm3 (0.0-0.8) H 04/15/22 09:11 Eos # (Auto) 0.5 K/mm3 (0.0-0.4) H 04/15/22 09:11 Baso # (Auto) 0.1 K/mm3 (0.0-0.1) 04/15/22 09:11 Add Manual Diff Complete 04/16/22 08:28 Total Counted 100 04/16/22 08:28 Seg Neutrophils % 81.0 % (40.0-70.0) H 04/15/22 09:11 Seg Neuts % (Manual) 71.0 % (40.0-70.0) H 04/16/22 08:28 Band Neutrophils % 0 % 04/16/22 08:28 Lymphocytes % (Manual) 15.0 % (13.4-35.0) 04/16/22 08:28 Reactive Lymphs % (Man) 0 % 04/16/22 08:28 Monocytes % (Manual) 7.0 % (0.0-7.3) 04/16/22 08:28 Eosinophils % (Manual) 7.0 % (0.0-4.3) H 04/16/22 08:28 Basophils % (Manual) 0 % (0.0-1.8) 04/16/22 08:28 Metamyelocytes % 0 % 04/16/22 08:28 Myelocytes % 0 % 04/16/22 08:28 Promyelocytes % 0 % 04/16/22 08:28 Blast Cells % 0 % 04/16/22 08:28 Nucleated RBC % Not Reportable 04/16/22 08:28 Seg Neutrophils # 11.0 K/mm3 (1.8-7.7) H 04/15/22 09:11 Seg Neutrophils # Man 6.4 K/mm3 (1.8-7.7) 04/16/22 08:28 Band Neutrophils # 0.0 K/mm3 04/16/22 08:28 Lymphocytes # (Manual) 1.4 K/mm3 (1.2-5.4) 04/16/22 08:28 Abs React Lymphs (Man) 0.0 K/mm3 04/16/22 08:28 Monocytes # (Manual) 0.6 K/mm3 (0.0-0.8) 04/16/22 08:28 Eosinophils # (Manual) 0.6 K/mm3 (0.0-0.4) H 04/16/22 08:28 Basophils # (Manual) 0.0 K/mm3 (0.0-0.1) 04/16/22 08:28 Metamyelocytes # 0.0 K/mm3 04/16/22 08:28 Myelocytes # 0.0 K/mm3 04/16/22 08:28 Promyelocytes # 0.0 K/mm3 04/16/22 08:28 Blast Cells # 0.0 K/mm3 04/16/22 08:28 WBC Morphology Not Reportable 04/16/22 08:28 Hypersegmented Neuts Not Reportable 04/16/22 08:28 Hyposegmented Neuts Not Reportable 04/16/22 08:28 Hypogranular Neuts Not Reportable 04/16/22 08:28 Smudge Cells Not Reportable 04/16/22 08:28 Toxic Granulation Not Reportable 04/16/22 08:28 Toxic Vacuolation Not Reportable 04/16/22 08:28 Dohle Bodies Not Reportable 04/16/22 08:28 Pelger-Huet Anomaly Not Reportable 04/16/22 08:28 Nelson Rods Not Reportable 04/16/22 08:28 Platelet Estimate Consistent w auto 04/16/22 08:28 Clumped Platelets Not Reportable 04/16/22 08:28 Plt Clumps, EDTA Not Reportable 04/16/22 08:28 Large Platelets Few 04/16/22 08:28 Giant Platelets Not Reportable 04/16/22 08:28 Platelet Satelliting Not Reportable 04/16/22 08:28 Plt Morphology Comment Not Reportable 04/16/22 08:28 RBC Morphology Not Reportable 04/16/22 08:28 Dimorphic RBCs Not Reportable 04/16/22 08:28 Polychromasia Not Reportable 04/16/22 08:28 Hypochromasia 1+ 04/16/22 08:28 Poikilocytosis Not Reportable 04/16/22 08:28 Anisocytosis Not Reportable 04/16/22 08:28 Microcytosis Not Reportable 04/16/22 08:28 Macrocytosis Not Reportable 04/16/22 08:28 Spherocytes Not Reportable 04/16/22 08:28 Pappenheimer Bodies Not Reportable 04/16/22 08:28 Sickle Cells Not Reportable 04/16/22 08:28 Target Cells Not Reportable 04/16/22 08:28 Tear Drop Cells Not Reportable 04/16/22 08:28 Ovalocytes Not Reportable 04/16/22 08:28 Helmet Cells Not Reportable 04/16/22 08:28 [place] Bodies Not Reportable 04/16/22 08:28 [place] Rings Not Reportable 04/16/22 08:28 Abdiel Cells Not Reportable 04/16/22 08:28 Bite Cells Not Reportable 04/16/22 08:28 Crenated Cell Not Reportable 04/16/22 08:28 Elliptocytes Not Reportable 04/16/22 08:28 Acanthocytes (Spur) Not Reportable 04/16/22 08:28 Rouleaux Not Reportable 04/16/22 08:28 Hemoglobin C Crystals Not Reportable 04/16/22 08:28 Schistocytes Not Reportable 04/16/22 08:28 Malaria parasites Not Reportable 04/16/22 08:28 Mikael Bodies Not Reportable 04/16/22 08:28 Hem Pathologist Commnt No 04/16/22 08:28 PT 13.6 Sec. (12.2-14.9) 04/15/22 09:11 INR 0.94 (0.87-1.13) 04/15/22 09:11 Sodium 139 mmol/L (137-145) 04/16/22 08:28 Potassium 3.7 mmol/L (3.6-5.0) 04/16/22 08:28 Chloride 105.2 mmol/L (98-107) 04/16/22 08:28 Carbon Dioxide 24 mmol/L (22-30) 04/16/22 08:28 Anion Gap 14 mmol/L 04/16/22 08:28 BUN 7 mg/dL (7-17) 04/16/22 08:28 Creatinine 0.6 mg/dL (0.6-1.2) 04/16/22 08:28 Estimated GFR > 60 ml/min 04/16/22 08:28 BUN/Creatinine Ratio 12 % 04/16/22 08:28 Glucose 89 mg/dL (65-100) 04/16/22 08:28 Lactic Acid 1.00 mmol/L (0.7-2.0) 04/14/22 02:13 Calcium 8.5 mg/dL (8.4-10.2) 04/16/22 08:28 Total Bilirubin 0.20 mg/dL (0.1-1.2) 04/14/22 02:13 AST 17 units/L (5-40) 04/14/22 02:13 ALT 13 units/L (7-56) 04/14/22 02:13 Alkaline Phosphatase 93 units/L (35-129) 04/14/22 02:13 Total Protein 6.6 g/dL (6.3-8.2) 04/14/22 02:13 Albumin 3.0 g/dL (3.9-5) L 04/14/22 02:13 Albumin/Globulin Ratio 0.8 % 04/14/22 02:13 Microbiology: Microbiology 04/15/22 14:26 Back Wound Culture - Preliminary Argueta/IV: Voiding Method Toilet Active Medications - Current Medications Current Medications: Generic Name Dose Route Start Last Admin Trade Name Freq PRN Reason Stop Dose Admin Acetaminophen 650 mg 04/14/22 08:00 04/14/22 08:55 Acetaminophen 325 Mg Tab PO 650 mg Q4H PRN Administration Pain MILD(1-3)/Fever >100.5/ESPOSITO Heparin Sodium (Porcine) 5,000 unit 04/14/22 22:00 04/16/22 13:21 Heparin 5,000 Unit/1 Ml Vial SUB-Q 5,000 unit Q8HR KARY Administration Ceftriaxone Sodium 1 gm in 50 mls @ 100 mls/hr 04/14/22 14:00 04/16/22 13:21 Rocephin/Ns 1 Gm/50 Ml IV 50 mls/hr Q24H KARY Administration Protocol Vancomycin HCl 750 mg/ Sodium 265 mls @ 166.667 mls/hr 04/15/22 03:00 04/16/22 15:58 Chloride IV 166.667 mls/hr Q12H KARY Administration Morphine Sulfate 2 mg 04/14/22 08:00 04/15/22 21:50 Morphine 4 Mg/1 Ml Inj IV 2 mg Q4H PRN Administration Pain , Severe (7-10) Ondansetron HCl 4 mg 04/14/22 07:28 04/14/22 08:56 Ondansetron 4 Mg/2 Ml Inj IV 4 mg Q8H PRN Administration Nausea And Vomiting Oxycodone/Acetaminophen 1 tab 04/14/22 07:28 04/16/22 15:05 Oxycodone /Acetaminophen 5-325mg Tab PO 1 tab Q6H PRN Administration Pain, Moderate (4-6) Sodium Chloride 10 ml 04/14/22 10:00 04/16/22 09:42 Sodium Chloride 0.9% 10 Ml Flush Syringe IV Not Given BID KARY Sodium Chloride 10 ml 04/14/22 08:00 Sodium Chloride 0.9% 10 Ml Flush Syringe IV PRN PRN LINE FLUSH Sodium Hypochlorite 1 applic 04/16/22 14:39 Sodium Hypochlorite, Dakin's 1/2 Strength (0.25%) 473 Ml Topical Soln TP Q12H PRN Wound Care
[2022-04-17] MEDS: VANCOMYCIN 750 MG in SODIUM CHLORIDE 0.9% 250ML 250 ML IV SCH ×2 (03:52→15:18)
[2022-04-17] MEDS: oxyCODONE /ACETAMINOPHEN 5-325MG TAB PO PRN ×2 (04:34→21:45)
[2022-04-17] MEDS: HEPARIN 5,000 UNIT/1 ML VIAL SUB-Q SCH ×3 (05:07→21:40)
[2022-04-17 05:53] LABS: Hemoglobin 9.1 gm/dl (10.1-14.3); Mean Corpuscular HGB Conc 31 % (30-34); Mean Corpuscular Volume 82 fl (79-97); Platelet Count 521 K/mm3 (140-440); Red Blood Count 3.52 M/mm3 (3.65-5.03); Red Cell Distribution Width 19.3 % (13.2-15.2)
[2022-04-17 06:13] LABS: Blood Urea Nitrogen 13 mg/dL (7-17); Calcium 8.3 mg/dL (8.4-10.2); Hemolysis Index 4
[2022-04-17 06:23] LABS: BUN/Creatinine Ratio 19
[2022-04-17] MEDS ORDERED: CALCIUM GLUCONATE 1,000 MG in SODIUM CHLORIDE 0.9% 100 ML IV ONE (07:39)
[2022-04-17 08:38] LABS: Band Neutrophils # (Manual) 0.4 K/mm3; Basophils % (Manual) 0 % (0.0-1.8); Myelocytes # (Manual) 0.1 K/mm3; Total Cells Counted 100
[2022-04-17 08:39] LABS: Hypochromasia 1+; Platelet Estimate Consistent w Auto
[2022-04-17] MEDS ORDERED: CALC GLUCONATE 1GM/NS 100 ML 1 GM/100 ML BAG IV ONE (09:00)
[2022-04-17] MEDS: cefTRIAXone/NS 1 GM/50 ML 1 GM/50 ML BAG IV SCH (13:03)
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
[2022-04-17] MEDS: MORPHINE 4 MG/1 ML INJ IV PRN (14:41)
--- NOTE | 2022-04-17 14:47 | Progress Note ---
Assessment and Plan Cultures: pending A/P: 66-year-old female no known past medical history now with: #Acute sepsis: With cytosis and tachycardia. Secondary to back abscess and cellulitis #Back cellulitis with abscess: Was taken for I&D. Cultures are pending. ?Secondary to bug bite. Recs: -Agree with vancomycin and ceftriaxone for now. -Follow up surgical cultures for DC PO antibiotics. -Can send with Augmentin 875/125mg q12h and Bactrim DS q12h for 7 days if discharging prior to culture results. Thank you for the consult, we will continue to follow. Mee Jerez MD [facility] ([facility]) O: [phone] F: [phone] Subjective Date of service: 04/17/22 Interval history: Afebrile, normal white count. Wound cultures no growth so far. Gram stain with gram-positive cocci. Objective - Exam Narrative Exam: Physical Exam: Constitutional: Alert, cooperative. No acute distress Head, Ears, Nose: Normocephalic, atraumatic. External ears, nose normal Eyes: Conjunctivae/corneas clear. No icterus. No ptosis. Neck: Supple, no meningeal signs Oral: dentition fair, no thrush Cardiovascular: S1, S2 normal. Respiratory: Good air entry, clear to auscultation bilaterally GI: Soft, non-tender; bowel sounds normal. No peritoneal signs. Musculoskeletal: Back wound dressed. Skin: No rash or abscess Hem/Lymphatic: No palpable cervical or supraclavicular nodes. No lymphangitis Psych: Mood ok. Affect normal Neurological: Awake, alert, oriented. No gross abnormality - Constitutional Vitals: Vital Signs Temp Pulse Resp BP Pulse Ox 97.3 F L 69 20 139/82 100 04/17/22 04:59 04/17/22 04:59 04/17/22 04:59 04/17/22 04:59 04/17/22 07:00 Temperature -Last 24 Hours Temperature 97.3 F Temperature 98.4 F - Labs CBC & Chem 7: 04/17/22 05:01 04/17/22 05:01 Labs: Abnormal lab results 04/17/22 04/17/22 Range/Units 05:01 05:01 RBC 3.52 L (3.65-5.03) M/mm3 Hgb 9.1 L (10.1-14.3) gm/dl Hct 29.0 L (30.3-42.9) % MCH 26 L (28-32) pg RDW 19.3 H (13.2-15.2) % Plt Count 521 H (140-440) K/mm3 Monocytes % (Manual) 10.0 H (0.0-7.3) % Eosinophils % (Manual) 8.0 H (0.0-4.3) % Lymphocytes # (Manual) 1.1 L (1.2-5.4) K/mm3 Eosinophils # (Manual) 0.6 H (0.0-0.4) K/mm3 Chloride 107.2 H (98-107) mmol/L Calcium 8.3 L (8.4-10.2) mg/dL
--- NOTE | 2022-04-17 16:01 | Progress Note ---
Assessment and Plan 66 yo F s/p debridement of back wound with drainage of abscess, POD 2 1. Necrotic back wound with severe cellulitis likely secondary to insect bite Wound culture - prelim - staph aureus Plan: 1. IV abx, ID on board 2. prn pain control 3. warm compresses to area 4. wound culture results pending 5. BID dressing changes with dakins - orders placed 6. HHC 7. OK to dc in am tomorrow with PO abx as recommended by ID. Patient to follow up in wound clinic in 1 week Thank you. Please call with any questions or concerns. Evaluation and treatment of this patient was during the time of the national and state emergency arising from COVID19 coronavirus pandemic. Treatment and procedures performed meet the current and available best practice and guidelines for patient during the COVID pandemic. Subjective Date of service: 04/17/22 Narrative: Patient seen and examined. Pain is well controlled. Afebrile Objective Vital Signs - 12hr 04/17/22 04/17/22 04:59 07:00 Temperature 97.3 F L Pulse Rate 69 Respiratory 20 Rate Blood Pressure 139/82 O2 Sat by Pulse 97 100 Oximetry - General physical appearance Narrative Exam: Gen.: Awake, alert, oriented x3. No apparent distress ENT: Trachea midline. No lymphadenopathy. No scleral icterus or conjunctival pallor CV: S1, S2 present Respiratory: No audible wheezes Extremities: No clubbing, cyanosis, edema Back: Dressing in place with serous drainage. Dressing removed and all packing removed from wound. The wound appears stable with pink wound bed and minimal slough. Periwound skin is indurated with cellulitis but no further purulent drainage. There is tenderness to palpation. The wound packed with 2 pieces of Dakin's moistened gauze. This was covered with dry gauze and cover site dressing. - Labs 04/17/22 05:01 04/17/22 05:01 Diabetes panel 04/17/22 Range/Units 05:01 Sodium 141 (137-145) mmol/L Potassium 4.0 (3.6-5.0) mmol/L Chloride 107.2 H (98-107) mmol/L Carbon Dioxide 25 (22-30) mmol/L BUN 13 (7-17) mg/dL Creatinine 0.7 (0.6-1.2) mg/dL Glucose 98 (65-100) mg/dL Calcium 8.3 L (8.4-10.2) mg/dL Calcium panel 04/17/22 Range/Units 05:01 Calcium 8.3 L (8.4-10.2) mg/dL Pituitary panel 04/17/22 Range/Units 05:01 Sodium 141 (137-145) mmol/L Potassium 4.0 (3.6-5.0) mmol/L Chloride 107.2 H (98-107) mmol/L Carbon Dioxide 25 (22-30) mmol/L BUN 13 (7-17) mg/dL Creatinine 0.7 (0.6-1.2) mg/dL Glucose 98 (65-100) mg/dL Calcium 8.3 L (8.4-10.2) mg/dL Adrenal panel 04/17/22 Range/Units 05:01 Sodium 141 (137-145) mmol/L Potassium 4.0 (3.6-5.0) mmol/L Chloride 107.2 H (98-107) mmol/L Carbon Dioxide 25 (22-30) mmol/L BUN 13 (7-17) mg/dL Creatinine 0.7 (0.6-1.2) mg/dL Glucose 98 (65-100) mg/dL Calcium 8.3 L (8.4-10.2) mg/dL
[2022-04-18 01:29] VITALS: BP 159/77
[2022-04-18] MEDS: HEPARIN 5,000 UNIT/1 ML VIAL SUB-Q SCH (05:17)
[2022-04-18] MEDS: oxyCODONE /ACETAMINOPHEN 5-325MG TAB PO PRN (05:20)
[2022-04-18] MEDS: VANCOMYCIN 750 MG in SODIUM CHLORIDE 0.9% 250ML 250 ML IV SCH (05:24)
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
== END 2022-04-18 16:00 | disposition home health service (06) | DRG 854 ==
LOC: ED 12:07 → 3A 04-14 07:29 → UNDODISOB 04-14 20:25 → OBSVTOIN 04-15 10:28 → 3A 04-15 13:48
PROVIDERS: ADMIT Student in an Organized Health Care Education/Training Program; ATTEND Student in an Organized Health Care Education/Training Program
PROC: 0JB70ZZ Excision of Back Subcutaneous Tissue and Fascia, Open Approach (ICD-10-PCS; principal; 2022-04-15)
DX: A41.9 Sepsis, unspecified organism (principal); L03.312 Cellulitis of back [any part except buttock and flank]; E44.1 Mild protein-calorie malnutrition; L02.212 Cutaneous abscess of back [any part, except buttock and flank]; E87.6 Hypokalemia; F17.200 Nicotine dependence, unspecified, uncomplicated; I10 Essential (primary) hypertension; Z98.51 Tubal ligation status; Z59.02 Unsheltered homelessness; Z68.28 Body mass index [BMI] 28.0-28.9, adult
CPT/HCPCS: 36415; 71260; 80048; 80053; 82140; 85007; 85025; 85027; 85610; 87075; 87076; 87116; 87186; G0378; J3490; J7121; J0610; J0696; J1644; J2270; J2405; J2704; J3370; J7030; J7050; J7120; Q9967